=== PATIENT | male | born 2000 | race Caucasian/White ===

== ENCOUNTER 2020-06-02 13:10 | Outpatient (CLI) | payer OTHER, SELFPAY | END 2020-06-02 13:11 | disposition home or self-care (01) | LOC: ANHCOVIDVC 13:11 | PROVIDERS: PCP Pediatrics | DX: Z23 Encounter for immunization (principal) | CPT/HCPCS: 0001A; 91300 ==

== ENCOUNTER 2020-06-22 14:11 | Outpatient (CLI) | payer OTHER, SELFPAY | END 2020-06-22 14:12 | disposition home or self-care (01) | LOC: ANHCOVIDVC 14:11 | PROVIDERS: PCP Pediatrics | DX: Z23 Encounter for immunization (principal) | CPT/HCPCS: 0002A; 91300 ==